=== PATIENT | male | born 1985 | race Caucasian/White ===

== ENCOUNTER 2024-10-02 22:58 | Emergency (ER) | payer MEDICAID ==
[~2024-10-02] VITALS: Ht 167.6 cm; Wt 136.4 kg
[~2024-10-02 22:58] MED LIST: IBUP-1984 PO; NO HOME MEDS
[2024-10-02 23:34] VITALS: BP 143/95; PULSE 108; RESP 18; TEMP 98.5; O2SAT 96
== END 2024-10-02 23:38 ==
LOC: ER 22:59
DX: Z02.89 Encounter for other administrative examinations (principal); Z79.1 Long term (current) use of non-steroidal anti-inflammatories (NSAID)
CPT/HCPCS: 99283